=== PATIENT | male | born 1990 | race Hispanic/Latino ===

== ENCOUNTER 2020-07-28 06:11 | Observation (INO) | payer OTHER ==
[2020-07-25 10:12] LABS: BASOPHILS % 0.6 % (0.0-1.0); EOSINOPHILS # (AUTO) 0.3 (0.0-0.4); HEMATOCRIT 44.1 % (38.2-49.6); HEMOGLOBIN 15.3 g/dL (14.0-18.0); LYMPHOCYTES # (AUTO) 2.8 (1.0-3.2); LYMPHOCYTES % 42.9 % (18.0-39.1); MEAN CORPUSCULAR HEMOGLOBIN 27.7 pg (28-32); MEAN CORPUSCULAR HGB CONC 34.7 g/dL (31-35); MEAN CORPUSCULAR VOLUME 79.9 fL (81-99); MONOCYTES # (AUTO) 0.6 (0.2-0.8); MONOCYTES % 8.7 % (4.4-11.3); NEUTROPHILS # (AUTO) 2.8 (2.1-6.9); NEUTROPHILS % 43.5 % (38.7-80.0); PLATELET COUNT 270 x10e3/uL (140-360); RED BLOOD COUNT 5.52 x10e6/uL (4.3-5.7); RED CELL DISTRIBUTION WIDTH 12.2 % (11.7-14.4)
[2020-07-25 10:31] LABS: INR 0.81; PROTHROMBIN TIME 11.7 seconds (11.9-14.5)
[2020-07-25 10:32] LABS: PARTIAL THROMBOPLASTIN TIME 26.4 seconds (23.8-35.5)
[2020-07-25 10:32] LABS: ANION GAP 15.6 mmol/L (8-16); BLOOD UREA NITROGEN 14 mg/dL (7-26); BUN/CREATININE RATIO 13 (6-25); CALCIUM 8.2 mg/dL (8.4-10.2); CARBON DIOXIDE 25 mmol/L (22-29); CHLORIDE 100 mmol/L (98-107); CREATININE, SERUM 1.04 mg/dL (0.72-1.25); EST GLOMERULAR FILTRATION RATE > 60 ML/MIN (60-); GLUCOSE 346 mg/dL (74-118); POTASSIUM 4.6 mmol/L (3.5-5.1); SODIUM 136 mmol/L (136-145)
[~2020-07-28] VITALS: Ht 190.5 cm; Wt 150.6 kg
[2020-07-28] VITALS (8 sets, daily range): BP systolic 126–131; BP diastolic 65–73
[~2020-07-28 06:11] MED LIST: BASAGLAR K100 UNIT/1 SC; HUMALOG100 UNIT/1 SQ
[2020-07-28] MEDS ORDERED: VANCOMYCIN HCL 1 GM VIAL ONE (06:44)
[2020-07-28] MEDS ORDERED: THROMBIN FOR SOLN 5,000 UNIT VIAL ONE (06:44)
[2020-07-28] MEDS ORDERED: BUPIVACAINE 0.5%/EPI 30 ML SDV INJ ONE (06:44)
[2020-07-28] MEDS ORDERED: LIDOCAINE HCL (LTA) 4 ML SOLN ONE (07:30)
[2020-07-28] MEDS ORDERED: ACETAMINOPHEN 1000 MG/100 ML 100 ML IV ONE (07:30)
[2020-07-28] MEDS ORDERED: SUGAMMADEX SODIUM 200 MG/2 ML VIAL IV ONE (07:31)
[2020-07-28] MEDS ORDERED: IBUPROFEN 800MG/ 200ML 200 ML IV ONE (07:31)
[2020-07-28] MEDS ORDERED: CEFAZOLIN SOD 1 GM/NS 50ML 100 ML IV ONE (07:44)
[2020-07-28] MEDS ORDERED: OXYCODONE/ACETAMINOPHEN 5-325 1 EACH TABLET PO PRN (10:15)
[2020-07-28] MEDS ORDERED: HYDROCODON-ACE1 EA12 PO (10:15)
[2020-07-28] MEDS ORDERED: CARISOPRODOL 350 MG TAB PO PRN (10:15)
[2020-07-28] MEDS ORDERED: MORPHINE SULFATE 5 MG/ML VIAL IM PRN (10:15)
[2020-07-28] MEDS ORDERED: PROMETHAZINE HCL (IM) 25 MG/ML VIAL IM PRN (10:15)
[2020-07-28] MEDS ORDERED: MAGNESIUM/ALUMINUM/SIMETHICONE 30 ML UDC PO PRN (10:15)
[2020-07-28] MEDS ORDERED: ACETAMINOPHEN 325 MG TAB PO PRN (10:15)
[2020-07-28] MEDS ORDERED: FENTANYL CITRATE/PF 100MCG/2 ML INJ ONE ×2 (11:25→12:56)
[2020-07-28] MEDS ORDERED: INSULIN LISPRO 24 UNIT SQ SCH (11:30)
[2020-07-28] MEDS ORDERED: ROCURONIUM BROMIDE 10 MG/ML 5ML VIAL IV ONE (12:01)
[2020-07-28] MEDS ORDERED: LIDOCAINE HCL 2% JELLY 5 ML TUBE ONE (12:01)
[2020-07-28] MEDS ORDERED: POVIDONE IODINE 0.05% 0.05 % ML PO ONE (12:01)
[2020-07-28] MEDS ORDERED: LIDOCAINE HCL 2% LOCAL INJ 5 ML SDV VIAL INJ ONE (12:01)
[2020-07-28] MEDS ORDERED: DEXAMETHASONE SOD PHOS INJ 4 MG/ML VIAL ONE (12:01)
[2020-07-28] MEDS ORDERED: ONDANSETRON HCL INJ 2MG/ML 2ML 2 MG/ML VIAL ONE (12:01)
[2020-07-28] MEDS ORDERED: SEVOFLURANE INHAL SOLN 250 ML PEN BTL ONE (12:01)
[2020-07-28] MEDS ORDERED: PROPOFOL IV EMULSION 10 MG/ML 20 ML VIAL ONE (12:01)
[2020-07-28] MEDS ORDERED: MIDAZOLAM HCL 2 MG/2 ML VIAL ONE (12:56)
[2020-07-28] MEDS: LACTATED RINGER'S 1,000 ML IV SCH ×2 (16:00→18:35)
[2020-07-28] MEDS: ONDANSETRON HCL INJ 2MG/ML 2ML 2 MG/ML VIAL IV PRN ×2 (16:00→23:24)
[2020-07-28] MEDS: HYDROMORPHONE 2MG/ML 2 MG/ML ML IV PRN ×2 (16:00→23:25)
[2020-07-28] MEDS: INSULIN LISPRO 100 UNIT/1 ML 3ML VIAL SQ SCH (16:30)
[2020-07-28] MEDS: CEFAZOLIN SOD 1 GM/NS 50ML 50 ML IV SCH (18:11)
[2020-07-28] MEDS ORDERED: ZOLPIDEM TARTRATE 5 MG TAB PO PRN (21:00)
[2020-07-28] MEDS ORDERED: [UNRECOGNIZED DRUG - OTHER] SC SCH (21:00)
[2020-07-28] MEDS ORDERED: INSULIN GLARGINE 100 UNITS/ML VIAL SQ SCH (21:00)
[2020-07-28] MEDS ORDERED: INSULIN GLARGINE HUM REC ANLOG 45 UNIT SC SCH (21:00)
[2020-07-29] VITALS: BP 145/67
[2020-07-29] MEDS: CEFAZOLIN SOD 1 GM/NS 50ML 50 ML IV SCH ×2 (01:00→08:53)
[2020-07-29] MEDS ORDERED: SODIUM CHLORIDE 0.9% 250ML 250 ML ONE (02:06)
[2020-07-29] MEDS: LACTATED RINGER'S 1,000 ML IV SCH (02:55)
[2020-07-29 04:00] VITALS: BP 115/58
[2020-07-29] MEDS: INSULIN LISPRO 100 UNIT/1 ML 3ML VIAL SQ SCH (07:30)
[2020-07-29 07:47] VITALS: BP 102/53
[2020-07-29 08:38] VITALS: BP 102/53
[2020-07-29 09:00] VITALS: BP 102/53
== END 2020-07-29 10:40 | disposition home or self-care (01) ==
LOC: OR 06:11 → PACU V 10:27 → MED/SURG 13:50
PROVIDERS: ADMIT Neurological Surgery; ATTEND Neurological Surgery
DX: M51.16 Intervertebral disc disorders with radiculopathy, lumbar region (principal); Z20.822 Contact with and (suspected) exposure to COVID-19; Z01.818 Encounter for other preprocedural examination; E11.9 Type 2 diabetes mellitus without complications; E66.01 Morbid (severe) obesity due to excess calories; Z68.41 Body mass index [BMI] 40.0-44.9, adult
CPT/HCPCS: 36415 ×2; 63047; 71046; 72020; 80048; 82948; 85025; 85610; 85730; 86850; 86900; 86920; 88304; 88311; 93005; G0378 ×2; J0131; J0690 ×2; J1100; J1170; J1815; J2001 ×2; J2250; J2405; J2704; J3010; J3370; J7050; J7121; U0002